=== PATIENT | female | born 1965 | race Caucasian/White ===

== ENCOUNTER 2017-08-20 05:54 | Observation (INO) ==
[2017-08-20] MEDS ORDERED: 0.9 % SODIUM CHLORIDE 1,000 ML IV ONE (06:29)
[2017-08-20] MEDS ORDERED: KETOROLAC 30 MG/ML VIAL IV ONE (06:29)
[2017-08-20] MEDS ORDERED: ONDANSETRON 4 MG/2 ML VIAL IV ONE (06:29)
--- NOTE | 2017-08-20 06:33 | Emergency Department Note ---
Abdominal Pain HPI - General Chief Complaint: Abdominal Pain Stated Complaint: glenda having a galbladder attach Time Seen by Provider: 08/20/17 06:20 Source: patient Mode of arrival: ambulatory Limitations: no limitations - History of Present Illness HPI Narrative: 52-year-old female with pain in the right upper quadrant for the last week. Took some ibuprofen without significant relief. Pain is intermittent and stabbing. Pain does seem to be worse with certain foods and will wake her up at night. Today the pain started at 2 AM, or about 4 hours. Denies fever but she is having some nausea. Vomited once a week ago. No diarrhea. - Related Data Home Medications Medication Instructions Recorded Confirmed Ascorbic Acid/Ascorbate Sodium 500 mg PO DAILY 08/20/17 08/20/17 [Vit C-Kelsy Hips 500 mg Chew Tb] Cholecalciferol (Vitd3)/Vit K2 [D3 5,000 unit PO DAILY 08/20/17 08/20/17 + K2 Dots 1,000 Units Tab] Losartan [Cozaar] 25 mg PO DAILY 08/20/17 08/20/17 Allergies Allergy/AdvReac Type Severity Reaction Status Date / Time Sulfa (Sulfonamide Allergy Severe Hives Verified 08/20/17 07:18 Antibiotics) Review of Systems All systems ED: reviewed and negative except as stated. Abdominal Pain PMH - Past Medical History Attestation: Yes: The following information was validated with the patient. Medical history: Reports: cancer (Breast), hypertension Surgical history ED: Reports: hysterectomy, other (Mastectomy, eye) - Social History Smoking status: Never smoker Physical Exam Normocephalic atraumatic. Conjunctive are clear sclerae nonicteric. No nasal discharge or congestion. Oropharynx pink moist. Heart is regular rate and rhythm no murmur appreciated. Lungs are clear to auscultation bilaterally without wheezes rales rhonchi or respiratory distress. Abdomen soft tender in the epigastric and right upper quadrant. Some guarding. No pedal edema. +2 radial pulse. Alert and oriented Limitations: no limitations Course Vital Signs Temperature 97.4 F 08/20/17 05:55 Pulse Rate 78 08/20/17 05:55 Respiratory Rate 16 08/20/17 05:55 Blood Pressure 115/75 08/20/17 05:55 Pulse Oximetry (%) 96 08/20/17 05:55 Temperature 97.4 F 08/20/17 05:55 Pulse Rate 72 08/20/17 08:16 Respiratory Rate 16 08/20/17 05:55 Blood Pressure 117/75 08/20/17 08:16 Pulse Oximetry (%) 96 08/20/17 08:16 Abdominal Pain - Lab Data Lab results reviewed: Yes I reviewed the patient's lab results. Result diagrams: 08/20/17 06:40 08/20/17 06:40 Lab Results 08/20/17 08/20/17 08/20/17 Range/Units 06:40 06:40 06:47 WBC 10.3 (4.5-11.0) K/mcL RBC 4.70 (4.00-5.20) M/mcL Hgb 15.1 H (12.0-15.0) g/dL Hct 44.0 (36.0-48.0) % POC Hct 44.0 (36.0-48.0) % MCV 93.7 (80.0-100.0) fL MCH 32.0 (26.0-34.0) pg MCHC 34.2 (31.0-36.0) g/dL RDW 12.2 (11.5-14.5) % Plt Count 290 (140-440) K/mcL MPV 8.3 (7.4-10.4) fL Gran % 85.6 H (38.0-78.0) % Lymph % (Auto) 10.8 L (15.5-49.0) % Mchenry % (Auto) 2.8 (1.0-12.0) % Eos % (Auto) 0.6 (0.0-7.0) % Baso % (Auto) 0.2 (0.0-2.0) % Gran # 8.8 H (1.8-8.0) K/mcL Lymph # (Auto) 1.1 L (1.5-4.8) K/mcL Mchenry # (Auto) 0.3 (0.1-0.9) K/mcL Eos # (Auto) 0.1 (0.0-0.7) K/mcL Baso # (Auto) 0 (0.0-0.3) K/mcL VBG Lactic Acid 1.9 (0.5-2.2) mmol/L POC Sodium 137 (133-145) mmol/L Sodium 135 (133-145) mmol/L POC Potassium 2.8 L* (3.3-5.1) mmol/L Potassium 2.9 L* (3.3-5.1) mmol/L POC Chloride 96 (96-108) mmol/L Chloride 95 L (96-108) mmol/L Carbon Dioxide 26 (22-30) mmol/L POC Total CO2 26 (22-30) mmol/L Anion Gap 14.0 (8-16) POC BUN 14 (6-20) mg/dl BUN 14 (6-20) mg/dl Creatinine 0.8 (0.6-1.1) mg/dl POC Creatinine 0.7 (0.6-1.1) mg/dl GFR Calculation 85 Glucose 133 H (70-105) mg/dL POC Glucose 136 H (70-105) mg/dL Calcium 9.2 (8.6-10.4) mg/dl POC WB Ioniz Calcium 1.07 L (1.16-1.32) mmol/L Total Bilirubin 2.4 H (0.0-1.0) mg/dL AST 678 H (0-37) U/l ALT 753 H (0-40) U/l Alkaline Phosphatase 397 H (39-117) U/L Total Protein 7.3 (5.9-8.4) gm/dL Albumin 4.2 (3.2-5.2) gm/dL Globulin 3.1 (2.2-3.7) gm/dL Albumin/Globulin Ratio 1.4 (1.0-2.3) Amylase 84 (28-100) U/L Lipase 72 H (7-60) U/L - Radiology Data Radiology results reviewed: Yes I reviewed the patient's radiology results. Gallbladder ultrasound shows dilated common bile duct which is indirect evidence of choledocholithiasis. Small gallstones seen as well, likely early cholecystitis Disposition Pt seen by BEAD PREPARER/PA only: No Clinical Impression: Hypokalemia, Choledocholithiasis with acute cholecystitis with obstruction Summary: After initial exam patient is worked up with laboratory and ultrasound. Treatment started with Zofran morphine Toradol and IV fluids Ordered K rider for low potassium 2.9 Choledocholithiasis with early cholecystitis and cholelithiasis seen on gallbladder ultrasound and consistent with labs Discussed case scenario with Dr. Castrejon GI doctor education site manager. She will need emergent ERCP. Will call hospitalist for admission and they will consult him at [facility]. [facility] called back and said that they were full. So I discussed the case with Dr. Ireland, hangar attendant and Dr. Fernandez, general surgeon and Marysol PRITCHETT. Patient will be admitted to Dr. Fernandez surgical service for cholecystectomy tomorrow. Consult will be sent for Marysol Beltran and Dr. Ireland for GI/ERCP. informed patient of the change in plans Disposition: Xfer As Inpt ([facility]) Condition: Serious Referrals: Keisha Fernandez ARNP [Primary Care Provider] -
[2017-08-20] MEDS ORDERED: POTASSIUM CHLORIDE 40 MEQ in DEXTROSE 5% IN WATER 500 ML IV ONE ×2 (07:14→13:00)
[2017-08-20 07:47] LABS: Basophils # (Auto) 0 K/mcL (0.0-0.3); Basophils % (Auto) 0.2 % (0.0-2.0); Eosinophils # (Auto) 0.1 K/mcL (0.0-0.7); Eosinophils % (Auto) 0.6 % (0.0-7.0); Granulocytes % (Auto) 85.6 % (38.0-78.0); Lymphocytes # (Auto) 1.1 K/mcL (1.5-4.8); Lymphocytes % (Auto) 10.8 % (15.5-49.0); Mean Cell Volume 93.7 fL (80.0-100.0); Mean Corpuscular HGB Conc 34.2 g/dL (31.0-36.0); Monocytes # (Auto) 0.3 K/mcL (0.1-0.9); Monocytes % (Auto) 2.8 % (1.0-12.0); Platelet Count 290 K/mcL (140-440); Red Cell Distribution Width 12.2 % (11.5-14.5)
[2017-08-20 08:33] LABS: ALT/SGPT 753 U/l (0-40); Albumin 4.2 gm/dL (3.2-5.2); Albumin/Globulin Ratio 1.4 (1.0-2.3); Alkaline Phosphatase 397 U/L (39-117); Amylase 84 U/L (28-100); Blood Urea Nitrogen 14 mg/dl (6-20); Lipase 72 U/L (7-60)
--- NOTE | 2017-08-20 08:37 | Ultrasound Report ---
CLINICAL INFORMATION: Right upper quadrant pain COMPARISON: None. FINDINGS: Multiple small stones layer dependently within the gallbladder. The gallbladder is normal size and wall thickness - 2 mm. There is, however, mild focal tenderness over the gallbladder. Common bile duct is dilated - 12.6 mm. The distal CBD cannot be visualized, but suspect choledocholithiasis. The pancreas and liver are normal in size configuration and echotexture without focal lesion IMPRESSION: Cholelithiasis with probable early cholecystitis. Moderate dilatation of the common bile duct is indirect evidence for choledocholithiasis, although the distal common bile duct cannot be visualized to detect an intraductal stone. Interpreted and Authenticated by: Dinesh Martinez 08/20/17
[2017-08-20] MEDS ORDERED: PIPERACILLIN SODIUM/TAZOBACTAM 3.375 GM in DEXTROSE 5% IN WATER 50 ML IV ONE (08:55)
[2017-08-20] MEDS ORDERED: ACETAMINOPHEN 325 MG TABLET PO PRN (10:21)
[2017-08-20] MEDS ORDERED: NALOXONE HCL 0.4 MG/ML VIAL IV PRN (10:21)
[2017-08-20] MEDS ORDERED: ONDANSETRON 4 MG/2 ML VIAL IV PRN ×2 (10:21→12:02)
[2017-08-20] MEDS ORDERED: IOPAMIDOL 50 ML BOTTLE IV ONE (11:31)
--- NOTE | 2017-08-20 12:09 | General Surg History&Physical ---
History of Present Illness Patient information: Note initiated : 08/20/17 at 12:06 pm Service Date, if different from initiated Date: [] Patient: Joann Yee a 52 y/o F admitted on 08/20/17 for I Am Having A Gallbladder Attack. Chief Complaint: [abdominal pain nausea and vomiting] HPI: Ms. Yee is a 52 year old F admitted for symptomatic gallstone disease with jaundice. The patient has greater than a 1 week history of pain in her right upper quadrant which waxed and waned. Last Saturday she had nausea and vomiting which lasted for 1 day. She did not have diarrhea. 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 She had pain in her right back shoulder. The pain came extremely severe about 2 AM this morning and continued until she was seen in the emergency room. In the emergency room she was noticed to be jaundiced. Labs reveal elevated bilirubin and LFTs. Abdominal ultrasound shows multiple gallstones with a dilated duct. She is felt to have acute cholecystitis with cholelithiasis and choledocholithiasis. Gastroenterology has been consulted and will make arrangements for ERCP. Post- ERCP I will proceed with laparoscopic cholecystectomy. This is discussed with the patient and she agrees with this plan. Review of Systems - Constitutional malaise, weakness - EENT Nose, mouth and throat: no abnormal hearing, no dysphagia, no headache(s), no sore throat - Breasts other (history of breast cancer status post bilateral mastectomy with reconstruction) - Cardiovascular no chest pain with activity, no dyspnea on exertion, no palpatations, no syncope - Respiratory no cough, no chest congestion - Gastrointestinal abdominal pain, bloating, cramping, heartburn, nausea, vomiting - Genitourinary Genitourinary: as per HPI (I 70 years epinephrine to the emergency) - Musculoskeletal no arthralgias, no numbness, no stiffness - Integumentary no changing lesions, no new lesions, no pruritus, no rash - Neurological no abnormal hearing, no dizziness, no headache(s), no numbness, no vertigo - Psychiatric no anxiety, no depression, no panic attacks - Endocrine no fatigue, no palpitations - Hematologic/Lymphatic no easy bleeding, no easy bruising, no lymphadenopathy - Allergic/Immunologic no tongue swelling, no throat swelling, no uticaria, no wheezing, no lip swelling Past History Past medical history: Hypertension History of breast cancer right side Past surgical history: Status post bilateral mastectomy with reconstruction Abdominal hysterectomy Past family history: Mother age 68 due to heart failure Father age 75 due to heart disease 1 sibling with multiple sclerosis 1 sibling with coronary artery disease 1 sibling with gastrointestinal disease type unknown Past social history: Single No children Employed No tobacco use Occasional wine use Denies drug use including marijuana Medications and Allergies Home Medications Medication Instructions Recorded Confirmed Type Ascorbic Acid/Ascorbate Sodium 500 mg PO DAILY 08/20/17 08/20/17 History [Vit C-Kelsy Hips 500 mg Chew Tb] Cholecalciferol (Vitd3)/Vit K2 [D3 5,000 unit PO DAILY 08/20/17 08/20/17 History + K2 Dots 1,000 Units Tab] Losartan [Cozaar] 25 mg PO DAILY 08/20/17 08/20/17 History Allergies Allergy/AdvReac Type Severity Reaction Status Date / Time Sulfa (Sulfonamide Allergy Severe Hives Verified 08/20/17 07:18 Antibiotics) Exam Temp Pulse Resp BP Pulse Ox 97.4 F 63 18 108/63 99 08/20/17 05:55 08/20/17 11:02 08/20/17 10:42 08/20/17 11:02 08/20/17 11:02 - General physical appearance well developed, well nourished, no distress - Eyes PERRL, normal ocular movement - ENT normal pinna, normal nares, normal mucosa, no hearing loss, no congestion - Head Head exam IM: Present: atraumatic, normocephalic - Neck no masses, no bruits, trachea midline, no lymphadectomy, no venous distension - Cardiovascular Cardiovascular exam IM: Present: normal rate and rhythm, RRR, +S1, +S2. Absent : JVD, tachycardia - Respiratory normal expansion, normal respiratory effort, clear to percussion, clear to auscultation - Abdomen Abdomen: Present: soft, tender (tender epigastrium and right upper quadrant; good active bowel sounds), bowel sounds Hernia: Present: none - Genitourinary Present: normal external genitalia - Integumentary Present: no rash, no growths, no abnormal pigmentation - Neurologic Present: normal coordination, normal sensation - Musculoskeletal Present: normal gait, normal posture - Psychiatric Present: oriented to time, oriented to person, oriented to place, speech is normal, memory intact Assessment and Plan (1) Chronic cholecystitis due to cholelithiasis with choledocholithiasis Patient will be evaluated by gastroenterology with ERCP and stone extraction to be done today Cholecystectomy will be scheduled for tomorrow Status: Acute (2) Hypertension Status: Acute Qualifiers: Hypertension type: essential hypertension Qualified Code(s): I10 - Essential (primary) hypertension (3) History of malignant neoplasm of right breast Status: Resolved
--- NOTE | 2017-08-20 12:19 | XRay Report ---
CLINICAL INFORMATION: Preop COMPARISON: None. FINDINGS: The heart size, mediastinum and pulmonary vessels are unremarkable. The lungs are clear. There are no effusions. The bones and soft tissues are within normal limits. IMPRESSION: Normal chest. Interpreted and Authenticated by: Dinesh Martinez 08/20/17
[2017-08-20] MEDS ORDERED: PROPOFOL 200 MG/20 ML VIAL IV ONE (13:20)
[2017-08-20] MEDS ORDERED: MIDAZOLAM 2 MG/2 ML VIAL IV ONE (13:20)
[2017-08-20] MEDS ORDERED: IOPAMIDOL 150 ML BOTTLE IJ ONE (13:21)
--- NOTE | 2017-08-20 13:31 | Internal Medicine Consult Note ---
Medical - CN: HPI - Data of Consult Patient: new to practice Consult date: 08/20/17 Requesting Physician: Gordon Fernandez MD Primary Care Provider: Keisha Fernandez Family Provider: Keisha Fernandez - Consult Narrative Reason for consult: Common duct stone, acute cholecystitis. 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 Over the last week, she has experienced intermittent attacks of RUQ abdominal pain that radiate subscapularly with associated nausea. This morning, she had a particularly severe episode and became mildly jaundiced with dark urine and acholic stool. She presented to ED where abdominal US showed cholelithiasis, positive Angeles's sign and biliary dilatation with a CBD measuring 12.6 mm. Liver enzymes are elevated in an obstructive pattern with total bilirubin 2.4, Alk phos 397, AST 678, ALT 753. Albumin normal 4.2. Lipase modestly elevated 72. She has been afebrile. CC: Gordon Fernandez MD - Constitutional Constitutional: Present: as per HPI - Breasts Additional comments: history of breast cancer - Cardiovascular Cardiovascular: Absent: chest pain at rest Additional comments: history of hypertension - Gastrointestinal Gastrointestinal: Present: abdominal pain Medical - CN: PMH Medical history: Right breast cancer, hypertension Surgical history: bilateral mastectomy with reconstruction, abdominal hysterectomy Family history: reviewed and not pertinent Social history: nonsmoker with social ETOH use. employed at [employer] Smoking status: Never smoker Have you smoked in the last 12 months: No Alcohol use: rarely Medical - CN: Meds Home Medications Medication Instructions Recorded Confirmed Type Ascorbic Acid/Ascorbate Sodium 500 mg PO DAILY 08/20/17 08/20/17 History [Vit C-Kelsy Hips 500 mg Chew Tb] Cholecalciferol (Vitd3)/Vit K2 [D3 5,000 unit PO DAILY 08/20/17 08/20/17 History + K2 Dots 1,000 Units Tab] Losartan [Cozaar] 25 mg PO DAILY 08/20/17 08/20/17 History Allergies Allergy/AdvReac Type Severity Reaction Status Date / Time Sulfa (Sulfonamide Allergy Severe Hives Verified 08/20/17 07:18 Antibiotics) Medical - CN: Exam - Constitutional Vitals: Temp Pulse Resp BP Pulse Ox 97.4 F 63 18 108/63 99 08/20/17 12:11 08/20/17 12:11 08/20/17 12:11 08/20/17 12:11 08/20/17 12:11 General appearance: average body habitus, mild distress - Head Head exam: Present: atraumatic, normal inspection - Neck Neck exam: Absent: lymphadenopathy, thyromegaly - Respiratory Respiratory exam: Present: normal respiratory exam, CTAB. Absent: accessory muscle use - Cardiovascular Cardiovascular exam: Present: normal rate and rhythm. Absent: diastolic murmur , systolic murmur - GI/Abdominal GI/Abdominal exam: Present: normal bowel sounds, tenderness. Absent: organomegaly - Skin Additional comments: slightly jaundiced Medical - CN: Result - Labs CBC & Chem 7: 08/20/17 06:40 08/20/17 06:40 Labs: Short CBC 08/20/17 Range/Units 06:40 WBC 10.3 (4.5-11.0) K/mcL Hgb 15.1 H (12.0-15.0) g/dL Hct 44.0 (36.0-48.0) % Plt Count 290 (140-440) K/mcL BMP 08/20/17 06:40 Sodium 135 Potassium 2.9 L* Chloride 95 L Carbon Dioxide 26 BUN 14 Creatinine 0.8 Glucose 133 H Calcium 9.2 Liver Function 08/20/17 Range/Units 06:40 Total Bilirubin 2.4 H (0.0-1.0) mg/dL AST 678 H (0-37) U/l ALT 753 H (0-40) U/l Alkaline Phosphatase 397 H (39-117) U/L Albumin 4.2 (3.2-5.2) gm/dL Medical - CN: A/P (1) Chronic cholecystitis due to cholelithiasis with choledocholithiasis Status: Acute Assessment and plan: Her biliary dilatation strongly suggests choledocholithiasis. We will arrange for ERCP today and she is scheduled to undergo cholecystectomy with Dr. Fernandez tomorrow. We discussed ERCP at length, using an illustration to explain procedure. Patient advised of risks of bleeding, perforation, infection, and pancreatitis. She agrees to proceed with procedure.
[2017-08-20] MEDS ORDERED: NITROGLYCERIN 0.6 MG/HR PATCH TD ONE (14:27)
[2017-08-20] MEDS ORDERED: INDOMETHACIN 25 MG CAPSULE PO ONE (14:28)
[2017-08-20] MEDS: 0.9 % SODIUM CHLORIDE 1,000 ML IV SCH (15:11)
[2017-08-20] MEDS ORDERED: MIDAZOLAM 2 MG/2 ML VIAL ONE (15:56)
[2017-08-20] MEDS ORDERED: PROPOFOL 40 ML IV ONE (15:56)
[2017-08-20] MEDS ORDERED: PROPOFOL 0 ML IV ONE ×2 (15:56)
[2017-08-20] MEDS ORDERED: GENTAMICIN SULFATE 80 MG in 0.9 % SODIUM CHLORIDE 250 ML IV SCH (16:45)
[2017-08-20] MEDS ORDERED: GENTAMICIN SULFATE 80 MG/2 ML VIAL IV ONE (17:00)
[2017-08-20] MEDS ORDERED: IOPAMIDOL 100 ML BOTTLE IJ ONE (18:12)
[2017-08-20] MEDS: PANTOPRAZOLE 40 MG VIAL IV SCH (19:00)
[2017-08-21] MEDS: 0.9 % SODIUM CHLORIDE 1,000 ML IV SCH ×6 (00:25→22:40)
[2017-08-21 06:01] LABS: ALT/SGPT 586 U/l (0-40); Albumin/Globulin Ratio 1.3 (1.0-2.3); Alkaline Phosphatase 273 U/L (39-117); Basophils # (Auto) 0 K/mcL (0.0-0.3); Basophils % (Auto) 0.4 % (0.0-2.0); Bilirubin,Direct 0.3 mg/dL (0.0-0.3); Blood Urea Nitrogen 8 mg/dl (6-20); Eosinophils # (Auto) 0.3 K/mcL (0.0-0.7); Eosinophils % (Auto) 4.2 % (0.0-7.0); Gamma Glutamyl Transpeptidase 389 U/L (5-36); Granulocytes % (Auto) 55.2 % (38.0-78.0); Lipase 43 U/L (7-60); Lymphocytes # (Auto) 2.5 K/mcL (1.5-4.8); Lymphocytes % (Auto) 33.9 % (15.5-49.0); Mean Cell Volume 94.3 fL (80.0-100.0); Mean Corpuscular HGB Conc 34.5 g/dL (31.0-36.0); Mean Corpuscular Hemoglobin 32.5 pg (26.0-34.0); Monocytes # (Auto) 0.5 K/mcL (0.1-0.9); Monocytes % (Auto) 6.3 % (1.0-12.0); Platelet Count 225 K/mcL (140-440); RBC 3.48 M/mcL (4.00-5.20); Red Cell Distribution Width 12.2 % (11.5-14.5); Uric Acid 3.9 mg/dL (2.5-8.0)
[2017-08-21] MEDS: PANTOPRAZOLE 40 MG VIAL IV SCH ×2 (07:03→17:45)
[2017-08-21] MEDS ORDERED: PIPERACILLIN SODIUM/TAZOBACTAM 3.375 GM in DEXTROSE 5% IN WATER 50 ML IV SCH (07:30)
[2017-08-21] MEDS ORDERED: PROPOFOL 200 MG/20 ML VIAL IV ONE (07:45)
[2017-08-21] MEDS ORDERED: ROCURONIUM 10 MG/ML ML IV ONE (07:45)
[2017-08-21] MEDS ORDERED: NEOSTIGMINE 1 MG/ML VIAL IV ONE (07:45)
[2017-08-21] MEDS ORDERED: GLYCOPYRROLATE 0.2 MG/ML VIAL IV ONE (07:45)
[2017-08-21] MEDS ORDERED: DEXAMETHASONE 10 MG/ML VIAL IV ONE (07:45)
[2017-08-21] MEDS ORDERED: MIDAZOLAM 2 MG/2 ML VIAL IV ONE (07:45)
[2017-08-21] MEDS ORDERED: fentaNYL 250 MCG/5 ML VIAL IV ONE (07:45)
[2017-08-21] MEDS ORDERED: LIDOCAINE HCL/PF 100 MG/5 ML SYRINGE IV ONE (07:45)
[2017-08-21] MEDS ORDERED: ONDANSETRON 4 MG/2 ML VIAL IV ONE (07:45)
--- NOTE | 2017-08-21 08:48 | Brief Operative Note ---
Date of procedure: 08/21/17 Pre-op diagnosis: CHOLELITHIASIS WITH CHOLECYSTITIS Post-op diagnosis: other (CHOLELITHIASIS WITH CHOLECYSTITIS) Procedure: LAPAROSCOPIC CHOLECYSTECTOMY Grafts/Implants: No Anesthesia: GETA Findings: EDEMATOUS GALLBLADDER WITH STONES Complications: none Surgeon: Gordon Fernandez Estimated blood loss (cc): 10 Specimens Removed/Pathology: other (GALLBLADDER) Condition: stable Disposition: PACU
[2017-08-21] MEDS ORDERED: LOSARTAN 25 MG TABLET PO SCH (09:00)
[2017-08-21] MEDS ORDERED: ACETAMINOPHEN 1,000 MG/100 ML BOTTLE IV ONE (09:09)
[2017-08-21] MEDS ORDERED: ePHEDrine 50 MG/ML AMPUL IV PRN (09:09)
[2017-08-21] MEDS ORDERED: PROMETHAZINE 25 MG/ML VIAL IV PRN (09:09)
[2017-08-21] MEDS ORDERED: NALOXONE HCL 0.4 MG/ML VIAL IV PRN ×2 (09:09→10:03)
[2017-08-21] MEDS ORDERED: IPRATROPIUM/ALBUTEROL 3 ML AMPUL.NEB NEB PRN (09:09)
[2017-08-21] MEDS ORDERED: FLUMAZENIL 0.1 MG/ML ML IV PRN (09:09)
[2017-08-21] MEDS ORDERED: MEPERIDINE 25 MG/ML SYRINGE IV PRN (09:09)
[2017-08-21] MEDS ORDERED: ONDANSETRON 4 MG/2 ML VIAL IV PRN ×2 (09:09→10:03)
[2017-08-21] MEDS ORDERED: HYDROmorphone 2 MG/ML VIAL IV PRN (09:09)
[2017-08-21] MEDS ORDERED: diphenhydrAMINE 50 MG/ML VIAL IV PRN (09:09)
[2017-08-21] MEDS ORDERED: fentaNYL 100 MCG/2 ML VIAL IV PRN (09:09)
[2017-08-21] MEDS ORDERED: ATROPINE SULFATE 0.4 MG/ML VIAL IV PRN (09:09)
[2017-08-21] MEDS ORDERED: METHOCARBAMOL 1,000 MG/10 ML VIAL IV PRN (09:09)
[2017-08-21] MEDS ORDERED: LACTATED RINGERS 1,000 ML IV SCH (09:15)
[2017-08-21] MEDS ORDERED: ACETAMINOPHEN 325 MG TABLET PO PRN (10:03)
--- NOTE | 2017-08-21 10:37 | Operative Note ---
DATE OF OPERATION: 08/21/2017 PREOPERATIVE DIAGNOSIS: Cholelithiasis with cholecystitis. POSTOPERATIVE DIAGNOSIS: Cholelithiasis with cholecystitis. PROCEDURE: Laparoscopic cholecystectomy. SURGEON: Gordon Fernandez MD FINDINGS: Edematous gallbladder with stones. DESCRIPTION OF PROCEDURE: Under general anesthesia, the patient's abdomen was prepped and draped in a sterile field. A time-out procedure was carried out as per protocol. A supraumbilical incision was made and Veress needle was inserted. The abdomen was insufflated with 2 liters CO2. A 12 mm port was placed. Laparoscope was placed. An edematous and dilated gallbladder was noted. Under videoscopic guidance, a 12 mm port and two 5 mm ports were placed in the right subcostal region. The gallbladder was grasped and positioned. Cystic duct and cystic artery were sequentially dissected. Cystic duct was followed back to the gallbladder and down to the common duct. It was clipped with five clips close to its junction with the gallbladder divided. Cystic artery had two branches. Each branch was followed onto the wall of the gallbladder, clipped with 4 clips and divided. The gallbladder was then from the intrahepatic bed using electrocautery. The gallbladder was placed in an Endopouch and retrieved. Hemostasis in the bed was achieved with electrocautery. Irrigating fluid was basically clear. There was no bile leak. A small piece of Surgicel was placed in the hilum over the area of the cystic duct stump. CO2 was allowed to escape from the abdomen and the ports were removed. The fascia at the umbilicus was closed with interrupted 0 Vicryl. Skin incisions were closed with alex. The patient tolerated the procedure well. Dressings were placed. She was awakened and transferred to a bed and taken to the postanesthetic care unit in stable, satisfactory condition. LCS:edgardo Job ID: [id number] Doc ID: [id number] Gordon Fernandez M.D.
--- NOTE | 2017-08-21 11:14 | ERCP Procedure Note ---
ERCP Procedure Notes - Procedure Information Patient information: Note initiated : 08/21/17 at 11:12 am Service Date: 08/20/17 Patient: Joann Yee 52 y/o F admitted on 08/20/17 for I Am Having A Gallbladder Attack. Pre-op diagnosis general: Common bile duct stone. Post-op diagnosis general: Common bile duct stone. Procedure narrative: The procedures, alternatives and risks were discussed with the patient and the patient's questions were answered. With endoscopist-administered intravenous sedation, the Olympus side viewing operating duodenoscope was introduced into the esophagus and advanced to the second part of the duodenum without difficulty. The ampulla of Vater appeared normal. Papillotomy was performed. The bile duct was selectively cannulated taking care to avoid the pancreatic duct and cholangiogram obtained. The bile duct was dilated and obstructed with a single white cholesterol stone, which was extracted with balloon technique. At the end of the procedure, the bile duct appeared to be cleared of all stones. The scope was withdrawn. Assessment: Common bile duct stone.
[2017-08-21] MEDS: KETOROLAC 30 MG/ML VIAL IV SCH ×3 (11:28→23:53)
[2017-08-21] MEDS: oxyCODONE/APAP 10/325MG TABLET PO PRN ×3 (14:11→19:19)
[2017-08-21] MEDS: MEPERIDINE 50 MG/ML INJECTION IV PRN ×2 (15:37→22:36)
[2017-08-22] MEDS: 0.9 % SODIUM CHLORIDE 1,000 ML IV SCH ×3 (03:21→12:46)
[2017-08-22] MEDS: oxyCODONE/APAP 10/325MG TABLET PO PRN ×3 (03:21→11:23)
[2017-08-22 05:26] LABS: Basophils # (Auto) 0 K/mcL (0.0-0.3); Basophils % (Auto) 0.2 % (0.0-2.0); Eosinophils # (Auto) 0 K/mcL (0.0-0.7); Eosinophils % (Auto) 0.4 % (0.0-7.0); Granulocytes % (Auto) 67.3 % (38.0-78.0); Lymphocytes % (Auto) 26.2 % (15.5-49.0); Mean Cell Volume 94.7 fL (80.0-100.0); Mean Corpuscular HGB Conc 34.4 g/dL (31.0-36.0); Mean Corpuscular Hemoglobin 32.6 pg (26.0-34.0); Monocytes # (Auto) 0.7 K/mcL (0.1-0.9); Monocytes % (Auto) 5.9 % (1.0-12.0); Platelet Count 226 K/mcL (140-440); RBC 3.52 M/mcL (4.00-5.20); Red Cell Distribution Width 12.1 % (11.5-14.5)
[2017-08-22] MEDS: KETOROLAC 30 MG/ML VIAL IV SCH ×2 (05:48→11:23)
[2017-08-22 05:54] LABS: ALT/SGPT 400 U/l (0-40); Albumin 3.4 gm/dL (3.2-5.2); Albumin/Globulin Ratio 1.7 (1.0-2.3); Alkaline Phosphatase 222 U/L (39-117); Bilirubin,Direct < 0.2 mg/dL (0.0-0.3); Blood Urea Nitrogen 8 mg/dl (6-20); Gamma Glutamyl Transpeptidase 318 U/L (5-36); Uric Acid 3.3 mg/dL (2.5-8.0)
[2017-08-22] MEDS: PANTOPRAZOLE 40 MG VIAL IV SCH (07:22)
[2017-08-22] MEDS ORDERED: LOSARTAN 25 MG TABLET PO SCH (09:00)
--- NOTE | 2017-08-22 11:18 | Discharge Summary ---
Providers - Providers Patient information: Note initiated : 08/22/17 at 11:16 am Service Date, if different from initiated Date: [] Patient: Joann Yee 52 y/o F admitted on 08/20/17 for I Am Having A Gallbladder Attack. Chief Complaint: [] Date of admission: 08/20/17 Discharge date: 08/22/17 Attending physician: Gordon Fernandez Gastroenterology--- Dr. Go Hospitalization Hospital course: 52-year-old female with acute onset of abdominal pain with nausea and vomiting for greater than 1 week. Symptoms became much worse she was seen in the emergency room where it was noted that she had a tender abdomen with elevated LFTs. Ultrasound revealed gallstones. She was admitted with cholelithiasis with cholecystitis and choledocholithiasis. On the day of admission she underwent successful ERCP with sphincterotomy and stone extraction by Dr. Go.. On 21 August laparoscopic cholecystectomy was done without difficulty. She has done well except for moderate postoperative pain. She is asymptomatic today and is tolerating a diet without difficulty. She is stable for discharge home. Her bilirubin is normal and her transaminases are trending down. Discharge diagnosis: choledocholithiasis Secondary discharge diagnosis: Acute cholecystitis with cholelithiasis Reason for admission: recurrent abdominal pain with nausea and vomiting Procedures: Endoscopic retrograde cholangiopancreatography with sphincterotomy and stone extraction Laparoscopic cholecystectomy Complications: None Exam Temp Pulse Resp BP Pulse Ox 98.4 F 60 16 118/65 94 08/22/17 07:32 08/22/17 07:32 08/22/17 07:32 08/22/17 07:32 08/22/17 07:32 - General physical appearance well developed, well nourished, no distress - Eyes PERRL, normal ocular movement - ENT normal pinna, normal nares, normal mucosa, no hearing loss, no congestion - Head Head exam IM: Present: atraumatic, normocephalic - Neck no masses, no bruits, trachea midline, no lymphadectomy, no venous distension - Cardiovascular Cardiovascular exam IM: Present: normal rate and rhythm - Respiratory normal expansion, normal respiratory effort, clear to percussion, clear to auscultation - Abdomen Abdomen: Present: soft, tender (mild tenderness around port sites otherwise normal exam), bowel sounds Hernia: Present: none - Genitourinary Present: normal external genitalia - Integumentary Present: no rash, no growths, no abnormal pigmentation - Neurologic Present: normal coordination, normal sensation - Musculoskeletal Present: normal gait, normal posture - Psychiatric Present: oriented to time, oriented to person, oriented to place, speech is normal, memory intact Discharge Plan - Patient/Caregiver Discharge Instructions Activity: increase activity as tolerated Diet: Low Fat Additional Instructions: Follow-up in the office in 2 weeks Prescriptions: oxyCODONE/APAP [Percocet 10-325Mg] 1 - 2 tab PO Q4HP PRN #30 tab PRN Reason: Pain Level 3-6 - Follow up Plan Follow up with: Marysol Beltran ARNP [Nurse Practitioner] - 08/27/17 3:45 pm Gordon Fernandez MD [Physician] - 09/05/17 12:30 pm Disposition: Home, Self-Care Prognosis: Good Rehab Potential: Good I certify that the patient requires SNF services.: No Overall status at discharge: patient is not back to baseline Pending Studies Resuscitation Status Full Code Diet Regular Diet Start SatAug 22 0855 Sodium Chloride (Sodium Chloride 0.9%) 1,000 mls @ 150 mls/hr IV .Q6H40M [facility] Last Admin: 08/22/17 05:48 Dose: Not Given Admin: 08/22/17 03:21 Dose: 150 mls/hr Infusion: 08/22/17 03:21 Dose: 150 mls/hr Admin: 08/21/17 22:40 Dose: 150 mls/hr Infusion: 08/21/17 21:30 Dose: 150 mls/hr Admin: 08/21/17 16:32 Dose: Not Given Admin: 08/21/17 14:11 Dose: 150 mls/hr Admin: 08/21/17 13:13 Dose: Not Given Ketorolac Tromethamine (Toradol) 30 mg IV Q6 [facility] Stop: 08/23/17 06:01 Last Admin: 08/22/17 05:48 Dose: 30 mg Admin: 08/21/17 23:53 Dose: 30 mg Admin: 08/21/17 17:46 Dose: 30 mg Admin: 08/21/17 11:28 Dose: 30 mg Losartan Potassium (Cozaar) 25 mg PO DAILY [facility] Last Admin: 08/22/17 08:48 Dose: Not Given Meperidine HCl (Demerol) 50 mg IV Q4HP PRN PRN Reason: PAIN LEVEL > 6 Last Admin: 08/21/17 22:36 Dose: 50 mg Admin: 08/21/17 15:37 Dose: 50 mg Oxycodone/Acetaminophen (Percocet 10-325mg) 1 - 2 tab PO Q4HP PRN PRN Reason: PAIN LEVEL 3-6 Last Admin: 08/22/17 07:22 Dose: 2 tab Admin: 08/22/17 03:21 Dose: 2 tab Admin: 08/21/17 19:19 Dose: 1 tab Admin: 08/21/17 18:13 Dose: 1 tab Admin: 08/21/17 14:11 Dose: 1 tab Pantoprazole Sodium (Protonix) 40 mg IV BIDAC [facility] Last Admin: 08/22/17 07:22 Dose: 40 mg Admin: 08/21/17 17:45 Dose: 40 mg Shift Summary 08/22/17 05:07 Shift Summary by Kelly Campbell&Ashley. BP elevated; bradycardic. Patient states that she has HTN and hasn't had her medication since she was admitted. Patient also states that she runs on a regular basis. 4 lap sites to abdomen with scant drainage; alex and Tegaderm in place. 22 gauge to RFA with NS at 150 ml/hr. Administered Percocet 10/325mg x2 and Demerol 50mg IV x1 for abdominal pain. Patient is also receiving scheduled Toradol 30mg. Patient is up with SBA. tolerating full liquid diet well ; denies N/V. Will update at bedside. Initialized on 08/22/17 05:07 - END OF NOTE
--- NOTE | 2017-08-22 12:39 | Surgical Pathology Report ---
HISTOLOGY SPECIMEN MICROSCOPIC DIAGNOSIS GALLBLADDER, CHOLECYSTECTOMY: -- CHRONIC CHOLECYSTITIS WITH CHOLELITHIASIS. (RLF:diannef) PROCEDURAL IMPRESSION Cholecystitis. GROSS DESCRIPTION Received in formalin labeled "A", is a 7.9 x 2.4 x 2.3 cm pink-roberts to purple-roberts gallbladder. There are multiple metal clips identified, including one on the cystic duct. There are multiple yellow-roberts multifaceted stones identified from less than 0.1 to 0.5 cm in greatest dimension. The mucosa is velvety green-roberts with yellow-roberts nodules on the surface. The wall is up to 0.2 cm thick. [employer] sections submitted in one cassette. (GAS:sln) Electronically Signed by: Mary Bell M.D.
== END 2017-08-22 12:29 | disposition home or self-care (01) ==
LOC: ED 05:54 → MEDSUR 05:54
PROVIDERS: ADMIT Family Medicine Adult Medicine; ATTEND Family Medicine Adult Medicine
PROC: ERCPSTO (2017-08-20 16:15)